=== PATIENT | female | born 1970 | race Caucasian/White ===

== ENCOUNTER 2023-12-23 15:28 | Outpatient (CLI) | payer SELFPAY ==
--- NOTE | ~2023-12-23 | MR_ITS ---
EXAMINATION: MR cervical spine wo con DATE: 12/23/2023 16:03 INDICATION: Chronic neck pain. TECHNIQUE: Magnetic resonance imaging (MRI) of the cervical spine was performed without intravenous c ontrast. COMPARISON: Cervical spine radiographs 07/18/2016 FINDINGS: Alignment is normal. Vertebral body heights are normal. There is mildly decreased disc heig ht at C3-C4 and C6-C7. The spinal cord signal intensity is normal. The following disc levels are spec ifically discussed: C2-C3: The disc does not extend beyond the endplate margin. There is no uncovertebral joint osteoarth ritis. There is mild right facet joint osteoarthritis. There is no neural foraminal stenosis. There i s no central canal stenosis. C3-C4: The disc is bulging. There is mild bilateral uncovertebral joint osteoarthritis. There is mode rate right and mild left facet joint osteoarthritis. There is mild bilateral neural foraminal stenosi s. There is mild central canal stenosis. C4-C5: There is a central protrusion. There is no uncovertebral joint osteoarthritis. There is severe right and moderate left facet joint osteoarthritis. There is mild right neural foraminal stenosis. T here is no central canal stenosis. C5-C6: There is a central extrusion. There is severe right and moderate left uncovertebral joint oste oarthritis. There is severe right and mild left facet joint osteoarthritis. There is moderate right a nd mild left neural foraminal stenosis. There is mild central canal stenosis. C6-C7: The disc is bulging. There is severe bilateral uncovertebral joint osteoarthritis. There is mo derate right and mild left facet joint osteoarthritis. There is mild bilateral neural foraminal steno sis. There is mild central canal stenosis. C7-T1: The disc does not extend beyond the endplate margin. There is no uncovertebral joint osteoarth ritis. There is severe bilateral facet joint osteoarthritis. There is mild bilateral neural foraminal stenosis. There is no central canal stenosis. IMPRESSION: 1. Mild cervical spondylosis. Reviewed, dictated and finalized at location A.
== END 2023-12-23 15:29 ==
LOC: GOSHIMG 15:35
DX: M43.02 Spondylolysis, cervical region (principal); G89.29 Other chronic pain
CPT/HCPCS: 72141